=== PATIENT | male | born 1995 | race Caucasian/White ===

== ENCOUNTER 2017-12-29 02:44 | Emergency (ER) | payer SELFPAY ==
--- NOTE | 2017-12-29 02:48 | EDPHY ---
H & P Time Seen by Provider: 12/29/17 02:47 HPI/ROS: Chief Complaint: Alcohol intoxication, unable to walk HPI: 22-year-old male who was found on the hill intoxicated. Patient passed out after drinking beer and whiskey. Is unable to ambulate on their own. Patient brought in by EMS for further evaluation. Patient denies falls or any injuries. Admits to drinking alcohol. Denies other drug use. ROS: 10 point Review of Systems is negative except as noted in the HPI. PMH: None Social History: Positive for alcohol Family History: non-contributory Physical Exam: Gen: Awake, slurred speech HEENT: Atraumatic Nose: no epistaxis or deformity Eyes: PERRLA, EOMI Mouth: Moist mucosa Neck: Supple, no step-offs or deformity Chest: Atraumatic, lungs clear to auscultation Heart: S1, S2 normal, no murmur Abd: Soft, non-tender, no guarding Back: Atraumatic Ext: no edema, atraumatic Skin: no rash Neuro: Sensation grossly intact, Strength 5/5 in bilateral upper and lower extremities Constitutional: Initial Vital Signs Temperature (C) 36.4 C 12/29/17 02:45 Heart Rate 125 H 12/29/17 02:45 Blood Pressure 150/90 H 12/29/17 02:45 O2 Sat (%) 96 12/29/17 02:45 O2 Delivery Mode Room Air Departure - Departure Disposition: Home, Routine, Self-Care Clinical Impression: Alcoholic intoxication Condition: Good Instructions: Alcohol Intoxication (ED) Referrals: Patient,NotPresent [Primary Care Provider] - As per Instructions
[2017-12-29 04:34] VITALS: BP 130/75
== END 2017-12-29 04:47 | disposition home or self-care (01) ==
DX: F10.129 Alcohol abuse with intoxication, unspecified (principal)